=== PATIENT | male | born 1965 | race Two or more races ===

== ENCOUNTER 2019-11-09 07:29 | Outpatient (CLI) | payer OTHER, SELFPAY ==
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
== END 2019-11-09 07:30 | disposition home or self-care (01) ==
LOC: ANHIMG 07:49
PROVIDERS: Visit Provider Family Medicine Sports Medicine
DX: M17.12 Unilateral primary osteoarthritis, left knee (principal)
CPT/HCPCS: 72148; 73721